=== PATIENT | female | born 1995 | race Caucasian/White ===

== ENCOUNTER 2016-04-29 10:07 | Emergency (ER) | payer MEDICAID, OTHER ==
[~2016-04-29] VITALS: Ht 165.1 cm; Wt 79.1 kg
[~2016-04-29 10:07] MED LIST: IBUP-1222 PO; NORE0.3513 PO; OXYC-302 PO; PREN1TAB56 PO
[2016-04-29 10:31] VITALS: BP 128/87
[2016-04-29] MEDS ORDERED: ONDANSETRON ODT 4 MG PO ONE (11:00)
[2016-04-29] MEDS ORDERED: SODIUM CHLORIDE 0.9% 1,000ML IV ONE (11:00)
[2016-04-29] MEDS ORDERED: SODIUM CHLORIDE FLUSH 10ML SYR IVF ONE (11:00)
[2016-04-29 11:08] LABS: HEMOGLOBIN 14.7 g/dL (11.7-16.4)
[2016-04-29 11:20] LABS: BLOOD UREA NITROGEN 11 mg/dL (7-18)
[2016-04-29 12:20] LABS: ASPARTATE AMINO TRANSFERASE 8 U/L (15-37)
== END 2016-04-29 13:14 | disposition home or self-care (01) ==
LOC: ED 12:15
DX: N30.90 Cystitis, unspecified without hematuria (principal); R10.13 Epigastric pain; R10.11 Right upper quadrant pain
CPT/HCPCS: 36415; 71010; 76700; 80053; 81001; 83690; 84703; 85025; 87086; 96360; 96361; 99285; J7030; 87077

== ENCOUNTER 2016-07-28 04:13 | Emergency (ER) | payer MEDICAID ==
[~2016-07-28] VITALS: Ht 165.1 cm; Wt 77.0 kg
[2016-07-28 06:30] VITALS: BP 112/62
== END 2016-07-28 06:35 | disposition home or self-care (01) ==
LOC: ED 06:11
DX: T76.21XA Adult sexual abuse, suspected, initial encounter (principal); F10.120 Alcohol abuse with intoxication, uncomplicated
CPT/HCPCS: 36415; 80307; 99283